=== PATIENT | male | born 1985 | race Caucasian/White ===

== ENCOUNTER 2017-11-06 10:32 | Emergency (ER) | payer BC, SELFPAY ==
[2017-11-06 10:33] VITALS: BP 198/94; PULSE 62; RESP 18; TEMP 36.6; O2SAT 98; BMI 38.0
--- NOTE | 2017-11-06 10:50 | EKG12_ITS ---
Test Reason : DIZZINESS Blood Pressure : / mmHG Vent. Rate : 062 BPM Atrial Rate : 062 BPM P-R Int : 130 ms QRS Dur : 110 ms QT Int : 384 ms P-R-T Axes : 024 -16 014 degrees QTc Int : 389 ms Normal sinus rhythm Poor R wave progression Confirmed by JULIET HEBERT, BRIAN ([id number]), electronic news gathering editor EVONNE MEDINA ([id number] on 11/09/2017 1:06:13 PM Referred By: BELTRAN Confirmed By:BRIAN CHUNG MD
[2017-11-06 10:54] VITALS: BP 142/70; BP 151/89; BP 154/92; PULSE 60; PULSE 62; PULSE 66
--- NOTE | 2017-11-06 10:59 | ED.DCSUM_ITS ---
- ER Visit Summary Date of Service: 11/06/17 Chief Complaint: Weak in the legs, flushed, nausea and lightheadedness. History of Present Illness: The patient is a 31 M's from work with the aforementioned chief complaint. He was standing 1-1/2 hours prior to the onset of his symptoms. He states this has happened 4 or 5 times in the past. He denies fever, chills or night sweats. Denies weight gain or weight loss. He denies any ocular, visual or auditory symptoms. He did complain of nausea without vomiting or diarrhea. He denies black or bloody stool. He denies any cardiac or respiratory symptoms. He denies any skin lesions. There is no history of trauma. He denies any leg pain, swelling or discoloration. There is no history of VTE or any risk factors. Physical Examination: There is markedly elevated 198/94. He reports that he has been told over the past 2-3 years as his blood pressure is elevated. He states no doctors treated it. Head is atraumatic normocephalic. Pupils are equal round reactive. Extraocular muscles are intact. TMs are pearly white with landmarks noted. Nares patent with no drainage. Posterior pharynx without erythema or exudate. Uvula is midline. There is no dysphonia or dysphasia. Trachea is midline. There is no stridor with auscultation of the neck. Heart is regular without murmur, gallop or rub. S1 and S2 are normal. Lungs are clear to auscultation with good movement of air bilaterally. Patient is alert and oriented ?3. Motor is 5 over 5. Sensory is intact. DTRs are symmetric with no clonus or Babinski sign. Cranial 2 through 12 are intact. Cerebellar testing is normal. There is no truncal ataxia was sitting up in bed and HINT test is negative. Test Results: EKG reveals a sinus rhythm rate of 62 and is normal. BMP and UA were negative Emergency Department Course and Treatment: EKG was obtained per nursing protocol. Since patient has markedly elevated blood pressure EKG is indicated to assess for LVH. Because he states he has been told over the past 2-3 years as blood pressure is elevated and is markedly elevated today will obtain a BMP and UA to assess for endorgan injury since he does not have a physician. Treatment Plan: Since patient does not have a primary care physician he was assigned to Dr. Kauffman. Dr. Ranjit Silveira who is water pollution control technician. He was given a prescription for lisinopril 10 mg tab 1 daily #30. Disposition: Discharge with outpatient follow-up in 1-2 weeks Impression: 1. Vasovagal near syncope 2. Hypertension newly diagnosed and treated This note was generated with [employer] dictation software. It may contain incorrect words, spelling, and punctuation that were not noted in review of the chart prior to signing ED Disposition - Plan for ED Patient: Disposition: Home or Assisted Living Chief Complaint: Dizziness Instructions: ED Near Syncope Vasovagal, ED Hypertension New Begin Tx Prescriptions: Lisinopril [Zestril] 10 mg PO DAILY #30 tab Referrals: Care Physician,No Primary [Primary Care Provider] - Ranjit Silveira MD [STAFF PHYSICIAN] - 1-2 Weeks
[2017-11-06 11:06] LABS: Bedside Glucose 107 mg/dL (70-110)
[2017-11-06 11:19] LABS: Bacteria 0 SEEN /hpf (None Seen); Mucous, Urine 0 SEEN /hpf (<or=2+); White Blood Cells 0 SEEN /hpf (0-5)
[2017-11-06 11:21] LABS: Glucose, Dipstick Normal (Normal); Ketone-Dipstick Negative (Negative); Leukocyte Esterase-Dipstick Negative /ul (Negative); Nitrite-Dipstick Negative (Negative); Occult Blood-Urine Negative /ul (Negative); Protein-Dipstick Negative (Negative); Specific Gravity, Urine 1.015 (1.002-1.030); Urine Bilirubin Dipstick Negative (Negative); Urine Urobilinogen Normal (Normal)
[2017-11-06 11:23] LABS: Color, Urine Yellow (Yellow); Urine Clarity Clear (Clear)
[2017-11-06 11:30] LABS: Red Blood Cells-Urine 0-5 SEEN /hpf (0-5); Squamous Epithelial Cells - UA 0-5 SEEN /hpf (0-5)
[2017-11-06 11:38] LABS: Anion Gap 7 (5-15); BUN 10 mg/dL (7-18); BUN/Creat Ratio 12.3 RATIO (10-20); Calcium,Total 9.1 mg/dL (8.5-10.1); Chloride 107 mmol/L (98-107); Creatinine, Serum 0.81 mg/dL (0.70-1.30); EST Glomerular Filtration Rate 117 mL/min (>60); Est Glom Filt Rate - Afr Amer 141 mL/min (>60); Estimated Creatinine Clearance 126.67 ml/min; Glucose 95 mg/dL (74-106); Potassium 3.8 mmol/L (3.5-5.1); Sodium Level 142 mmol/L (136-145)
== END 2017-11-06 11:57 | disposition home or self-care (01) ==
PROVIDERS: Emergency Provider Emergency Medicine
DX: R55 Syncope and collapse (principal); I10 Essential (primary) hypertension; E66.9 Obesity, unspecified; Z68.38 Body mass index [BMI] 38.0-38.9, adult; Z87.891 Personal history of nicotine dependence
CPT/HCPCS: 36415; 80048; 81001; 82962; 93005; 99283

== ENCOUNTER → 2017-11-20 08:41 | Outpatient (CLI) | payer BC, SELFPAY ==
[2017-11-20 10:59] LABS: Hemoglobin A1c 5.3 % (4.2-6.3)
[2017-11-20 11:02] LABS: Anion Gap 6 (5-15); BUN 15 mg/dL (7-18); BUN/Creat Ratio 18.7 RATIO (10-20); Calcium,Total 9.4 mg/dL (8.5-10.1); Chloride 105 mmol/L (98-107); EST Glomerular Filtration Rate 118 mL/min (>60); Est Glom Filt Rate - Afr Amer 142 mL/min (>60); Glucose 95 mg/dL (74-106); Potassium 4.1 mmol/L (3.5-5.1); Sodium Level 140 mmol/L (136-145); Thyroid Stim Hormone (TSH) 2.24 uIU/mL (0.358-3.74)
== END ==
PROVIDERS: Family Provider Family Medicine; PCP Family Medicine; Visit Provider Family Medicine
DX: I10 Essential (primary) hypertension (principal)
CPT/HCPCS: 36415; 80048; 83036; 84443

== ENCOUNTER → 2017-12-09 06:48 | Outpatient (CLI) | payer BC, SELFPAY ==
[2017-12-09 09:02] LABS: Glucose GTT- Fasting 100 mg/dL (74-106)
[2017-12-09 09:44] LABS: Glucose GTT-30 minutes 139 mg/dL (110-170)
[2017-12-09 10:42] LABS: Glucose GTT- 1 Hour 123 mg/dL (120-170)
[2017-12-09 10:50] LABS: Insulin 260.2 mU/L (2.6-37.6)
[2017-12-09 12:36] LABS: Glucose GTT- 2 Hour 92 mg/dL (70-120)
[2017-12-09 12:42] LABS: Glucose GTT- 3 Hour 56 mg/dL (74-106)
[2017-12-09 12:59] LABS: Glucose GTT- 4 Hour 79 mg/dL (74-106)
[2017-12-09 14:03] LABS: Glucose GTT- 5 Hour 84 mg/dL (74-106)
== END ==
PROVIDERS: Family Provider Family Medicine; PCP Family Medicine; Visit Provider Family Medicine
DX: R55 Syncope and collapse (principal)
CPT/HCPCS: 36415; 82951; 82952; 83525

== ENCOUNTER → 2018-04-05 06:43 | Outpatient (CLI) | payer BC, SELFPAY ==
[2018-04-05 07:15] LABS: Absolute Neutrophil Count 4.2 X10^3/uL (2.0-7.7); Basophil# 0.04 X10^3/uL; Basophil% 0.5 % (0-1); Eosinophil# 0.24 X10^3/uL; Eosinophils% 3.1 % (0-5); Hematocrit 42.4 % (40-54); Hemoglobin 14.5 g/dl (13.0-16.5); Mean Corp Hgb Conc 34.2 g/gl (32-36); Mean Corpuscular Hgb 29.6 pg (27.0-32.0); Mean Corpuscular Volume 86.5 fL (80-94); Mean Platelet Vol. 10.6 fl (6.2-12.0); Monocyte# 0.52 X10^3/uL; Monocyte% 6.8 % (0-10); Neutrophil # 4.18 X10^3/uL (2.7-7.7); Neutrophil % 54.8 % (47-70); Platelet Count 210 K/mm3 (150-450); RBC Distribution Width CV 12.4 % (11.6-14.6); RBC Distribution Width SD 38.8 fl (35.1-43.9); White Blood Count 7.6 K/mm3 (4.4-11.0)
[2018-04-05 07:29] LABS: POSITIVE COUNT NO; POSITIVE DIFFERENTIAL NO; POSITIVE MORPHOLOGY NO
[2018-04-05 07:57] LABS: AST(SGOT) 32 U/L (15-37); Alanine Aminotransfer ALT/SGPT 68 U/L (16-61); Albumin, Serum 3.7 g/dL (3.2-5.0); Alkaline Phosphatase 57 U/L (45-117); Anion Gap 6 (5-15); BUN 13 mg/dL (7-18); BUN/Creat Ratio 15.7 RATIO (10-20); Bilirubin, Direct 0.09 mg/dL (0.00-0.30); Calcium,Total 8.9 mg/dL (8.5-10.1); Chloride 105 mmol/L (98-107); Cholesterol 187 mg/dL (200); Creatinine, Serum 0.83 mg/dL (0.70-1.30); EST Glomerular Filtration Rate 114 mL/min (>60); Est Glom Filt Rate - Afr Amer 138 mL/min (>60); Globulin 3.6 g/dL (2.2-4.2); Glucose 90 mg/dL (74-106); High Density Lipoprotein 50 mg/dL; Potassium 4.1 mmol/L (3.5-5.1); Protein, Total 7.3 g/dL (6.4-8.2); Sodium Level 141 mmol/L (136-145); Thyroid Stim Hormone (TSH) 3.12 uIU/mL (0.358-3.74); Triglycerides 138 mg/dL; Very Low Density Lipoprotein 28 mg/dL (5-40)
== END ==
PROVIDERS: Family Provider Family Medicine; PCP Family Medicine; Visit Provider Internal Medicine Cardiovascular Disease
DX: I10 Essential (primary) hypertension (principal); R55 Syncope and collapse; E66.9 Obesity, unspecified
CPT/HCPCS: 36415; 80048; 80061; 80076; 84436; 84443; 85025

== ENCOUNTER → 2018-04-05 06:47 | Outpatient (REF) | payer BC, SELFPAY ==
--- NOTE | 2018-04-05 10:34 | ECHOD_ITS ---
Reason For Study: Syncope Procedure This was a 2D Doppler, Color Flow transthoracic echocardiogram. Exam performed in department. Left Ventricle Normal size and thickness. The estimated ejection fraction is 65 %. Normal diastology for age. No regional wall motion abnormalities noted. Right Ventricle Normal size and thickness. Normal systolic function. Atria Normal left atrium. Normal right atrium. Normal atrial septum. Mitral Valve The mitral valve is structurally normal. No prolapse or stenosis seen. Trivial mitral valve insufficiency. Tricuspid Valve Normal tricuspid valve. Trivial tricuspid valve insufficiency. Right ventricular systolic pressure estimated to be 26 mmHg. Aortic Valve Normal aortic valve. Trisinus/trileaflet aortic valve. Trivial aortic valve insufficiency. Pulmonic Valve Normal pulmonic valve. Great Vessels Normal aortic root. Normal arch. Normal inferior vena cava. Inferior vena cava collapse with sniff. Pericardium/Pleural No pericardial effusion. MMode/2D Measurements & Calculations LVIDd: 4.9 cm IVSd: 1.3 cm Ao root diam: 3.5 cm LVIDs: 3.1 cm LVPWd: 1.0 cm LA dimension: 4.2 cm RVDd: 4.0 cm FS: 36.5 % LAV(MOD-bp): 48.3 ml LA A4 area: 15.7 cm2 RA A4 area: 16.4 cm2 LAV(MOD-bp) Indexed: 21.1 ml/m2 LAV(MOD-sp2): 57.0 ml LAV(MOD-sp4): 40.2 ml Time Measurements MV dec time: 0.24 sec Doppler Measurements & Calculations MV E max piotr: 110.6 cm/sec Lat Peak E' Piotr: 16.3 cm/sec Med Peak E' Piotr: 14.4 cm/sec MV A max piotr: 61.5 cm/sec E/E' lat: 6.8 E/E' med: 7.7 MV E/A: 1.8 MV V2 max: 119.7 cm/sec MV P1/2t max piotr: 120.8 cm/sec Ao V2 max: 141.2 cm/sec MV max P.7 mmHg MV P1/2t: 116.5 msec Ao max P.0 mmHg MV V2 mean: 58.0 cm/sec MV dec slope: 303.8 cm/sec2 Ao V2 mean: 90.1 cm/sec MV mean P.7 mmHg MVA(P1/2t): 1.9 cm2 Ao mean P.8 mmHg MV V2 VTI: 32.4 cm Ao V2 VTI: 26.9 cm LV V1 max: 121.3 cm/sec PA V2 max: 124.2 cm/sec TR max piotr: 230.8 cm/sec LV V1 max P.9 mmHg TR max P.3 mmHg LV V1 mean P.8 mmHg LV V1 mean: 78.2 cm/sec LV V1 VTI: 25.8 cm Interpretation Summary The estimated ejection fraction is 65 %. Normal diastology for age. Trivial mitral valve insufficiency. Trivial tricuspid valve insufficiency. Right ventricular systolic pressure estimated to be 26 mmHg. Trivial aortic valve insufficiency. There is no comparison study available. Ordering Physician: Lacho Christiansen Referring Physician: Lacho Christiansen Performed By: Denys Snell [facility]
== END ==
LOC: CVS 06:47
PROVIDERS: Family Provider Family Medicine; PCP Family Medicine; Visit Provider Internal Medicine Cardiovascular Disease
DX: R55 Syncope and collapse (principal); I10 Essential (primary) hypertension
CPT/HCPCS: 93270; 93306

== ENCOUNTER → 2018-04-15 10:18 | Outpatient (CLI) | payer BC, SELFPAY ==
--- NOTE | 2018-04-15 10:20 | STE_ITS ---
Reason For Study: Syncope Stress Results Protocol: Robert Protocol Maximum Predicted HR: 187 bpm Target HR: 159 bpm% Max imum Predicted HR: 94 % DurationHeart Rate Stage (mm:ss) (bpm) BPCom ment Baseline 46 118/72 No Chest Pain Robert Protocol Stage I 3:00 13 6 148/70No Chest Pain; Mild Dyspnea Robert Protocol Stage II 3:00 15 0 138/72No Chest Pain; Mild Dyspnea Robert Protocol Stage III 1:00 17 6 / No Chest Pain; Moderate Dyspnea; Leg Pain Recovery 99 128/72 No Chest Pain Stress Duration: 7:00 mm:ss Maximum Stress HR: 176 bpmM ETS: 10 Baseline Echocardiogram Findings The estimated ejection fraction is 65 %. Normal size and thickness. Stress Echo Wall motion Data Resting WMIntermediate WMStress WM Resting Wall Motion Wall Motion Stress No regional wall motion No regional wall motion abnormalities noted. abnormalities noted. EKG Data Normal intervals are noted. The patient exercised according to the regular Robert protocol for a total duration of 7:00. The maximum heart rate attained was 181 beats per minute. This was 96% of maximum predicted heart rate. The patient exercised into stage 3 of the Robert protocol. During stress, there were no ST or T wave changes noted to suggest ischemia. No clinical angina was noted. No arrhythmias noted. Interpretation Summary The estimated ejection fraction is 65 %. Normal, adequate, treadmill echocardiogram. Negative for ischemia by EKG and echocardiographic criteria. No anginal symptoms noted. No arrhythmias noted. Appropriate blood pressure response to exercise. Below average exercise capacity for age. Final LVEF is 75%. Test terminated due to dyspnea and leg pain. No complications. Ordering Physician: Lacho Christiansen Referring Physician: Lacho Christiansen Performed By: Noa Landers RDCS
== END ==
PROVIDERS: Family Provider Family Medicine; PCP Family Medicine; Visit Provider Internal Medicine Cardiovascular Disease
DX: R55 Syncope and collapse (principal); I10 Essential (primary) hypertension; E66.9 Obesity, unspecified
CPT/HCPCS: 93017; 93350

== ENCOUNTER → 2018-07-02 20:00 | Outpatient (CLI) | payer BC, SELFPAY | PROVIDERS: Family Provider Family Medicine; PCP Family Medicine; Visit Provider Internal Medicine Cardiovascular Disease | DX: G47.10 Hypersomnia, unspecified (principal); R55 Syncope and collapse; E66.9 Obesity, unspecified | CPT/HCPCS: 95810 ==

== ENCOUNTER → 2018-11-10 11:23 | Outpatient (CLI) | payer BC, SELFPAY ==
[2018-11-10 07:11] VITALS: BMI 39.5
[2018-11-10 14:37] LABS: Anion Gap 12 (5-15); BUN 15 mg/dL (7-18); BUN/Creat Ratio 20.2 RATIO (10-20); Calcium,Total 9.1 mg/dL (8.5-10.1); Chloride 104 mmol/L (98-107); Creatinine, Serum 0.74 mg/dL (0.70-1.30); EST Glomerular Filtration Rate 128 mL/min (>60); Est Glom Filt Rate - Afr Amer 155 mL/min (>60); Glucose 65 mg/dL (74-106); Sodium Level 142 mmol/L (136-145)
[2018-11-10 14:43] LABS: Microalbumin,Random Urine < 5.0 mg/L (NO RANGE EST.)
== END ==
PROVIDERS: Family Provider Family Medicine; PCP Family Medicine; Visit Provider Family Medicine
DX: I10 Essential (primary) hypertension (principal)
CPT/HCPCS: 36415; 80048; 82043; 82570

== ENCOUNTER → 2019-08-12 | Outpatient (CLI) | payer BC, SELFPAY ==
[2018-11-10 07:11] VITALS: BMI 39.5
[2019-08-12 10:26] LABS: ALB/GLOB Ratio 1.2 RATIO (0.9-2.4); AST(SGOT) 42 U/L (15-37); Alanine Aminotransfer ALT/SGPT 87 U/L (16-61); Alkaline Phosphatase 67 U/L (45-117); Anion Gap 8 (5-15); BUN 16 mg/dL (7-18); Calcium,Total 9.2 mg/dL (8.5-10.1); Chloride 106 mmol/L (98-107); EST Glomerular Filtration Rate 117 mL/min (>60); Est Glom Filt Rate - Afr Amer 141 mL/min (>60); Globulin 3.3 g/dL (2.2-4.2); Glucose 98 mg/dL (74-106); Potassium 4.5 mmol/L (3.5-5.1); Protein, Total 7.3 g/dL (6.4-8.2); Sodium Level 141 mmol/L (136-145)
[2019-08-12 10:31] LABS: Hemoglobin A1c 5.4 % (4.2-6.3)
[2019-08-12 10:37] LABS: Microalbumin,Random Urine 30.9 mg/L (NO RANGE EST.); Microalbumin:Creatinine Ratio 21.2 mg/g CRE (<30 mg/g CRE)
== END | disposition home or self-care (01) ==
LOC: MFPLAB 08:47
PROVIDERS: Family Provider Family Medicine; PCP Family Medicine; Referring Provider Family Medicine; Visit Provider Family Medicine
DX: I10 Essential (primary) hypertension (principal); E88.81 Metabolic syndrome and other insulin resistance
CPT/HCPCS: 36415; 80053; 82043; 82570; 83036

== ENCOUNTER → 2019-11-07 | Outpatient (CLI) | payer BC, SELFPAY ==
[2018-11-10 07:11] VITALS: BMI 39.5
[2019-11-07 18:11] LABS: Absolute Lymphocyte Count 3.47 X10^3/uL (0.83-4.51); Absolute Neutrophil Count 5.3 X10^3/uL (2.0-7.7); Basophil# 0.06 X10^3/uL; Basophil% 0.6 % (0-1); Eosinophil# 0.16 X10^3/uL; Eosinophils% 1.7 % (0-5); Hematocrit 45.8 % (40-54); Hemoglobin 15.2 g/dL (13.0-16.5); Lymphocyte # 3.47 X10^3/ul (4.0); Lymphocyte % 35.8 % (19-41); Mean Corp Hgb Conc 33.2 g/dL (32-36); Mean Corpuscular Hgb 28.6 pg (27.0-32.0); Mean Corpuscular Volume 86.1 fL (80-94); Mean Platelet Vol. 10.7 fl (6.2-12.0); Monocyte# 0.61 X10^3/uL; Monocyte% 6.3 % (0-10); NRBC Flagged by Analyzer 0 % (0-5); Neutrophil # 5.34 X10^3/uL (2.7-7.7); Neutrophil % 55.2 % (47-70); Platelet Count 231 K/mm3 (150-450); RBC Distribution Width CV 12.2 % (11.6-14.6); RBC Distribution Width SD 38.3 fl (35.1-43.9); Red Blood Count 5.32 M/mm3 (4.6-6.2); White Blood Count 9.7 K/mm3 (4.4-11.0)
[2019-11-07 18:44] LABS: ALB/GLOB Ratio 1.2 RATIO (0.9-2.4); AST(SGOT) 35 U/L (15-37); Alanine Aminotransfer ALT/SGPT 79 U/L (16-61); Albumin, Serum 4.2 g/dL (3.2-5.0); Alkaline Phosphatase 75 U/L (45-117); Anion Gap 3 (5-15); BUN 13 mg/dL (7-18); BUN/Creat Ratio 14.3 RATIO (10-20); Calcium,Total 9.6 mg/dL (8.5-10.1); Chloride 107 mmol/L (98-107); Creatinine, Serum 0.91 mg/dL (0.70-1.30); EST Glomerular Filtration Rate 101 mL/min (>60); Est Glom Filt Rate - Afr Amer 122 mL/min (>60); Ferritin 160 ng/mL (26-388); GGTP 30 U/L (15-85); Globulin 3.6 g/dL (2.2-4.2); Glucose 76 mg/dL (74-106); Iron Binding Capacity,Total 351 ug/dL (250-450); Potassium 3.7 mmol/L (3.5-5.1); Protein, Total 7.8 g/dL (6.4-8.2); Sodium Level 140 mmol/L (136-145)
== END | disposition home or self-care (01) ==
LOC: MFPLAB 16:42
PROVIDERS: PCP Family Medicine; Referring Provider Family Medicine; Visit Provider Family Medicine
DX: R74.0 Nonspecific elevation of levels of transaminase and lactic acid dehydrogenase [LDH] (principal)
CPT/HCPCS: 36415; 80053; 82728; 82977; 83550; 85025

== ENCOUNTER → 2020-12-28 10:46 | Outpatient (CLI) | payer BC, SELFPAY ==
[2018-11-10 07:11] VITALS: BMI 39.5
[2020-12-28 12:23] LABS: Absolute Neutrophil Count 3.6 X10^3/uL (2.0-7.7); Basophil# 0.06 X10^3/uL; Basophil% 0.9 % (0-1); Eosinophil# 0.11 X10^3/uL; Eosinophils% 1.7 % (0-5); Hematocrit 48.6 % (40-54); Hemoglobin 15.9 g/dL (13.0-16.5); Lymphocyte % 33.1 % (19-41); Mean Corp Hgb Conc 32.7 g/dL (32-36); Mean Corpuscular Hgb 28.6 pg (27.0-32.0); Mean Corpuscular Volume 87.4 fL (80-94); Mean Platelet Vol. 10.8 fl (6.2-12.0); Monocyte% 7.9 % (0-10); NRBC Flagged by Analyzer 0 % (0-5); Neutrophil # 3.55 X10^3/uL (2.7-7.7); Neutrophil % 55.9 % (47-70); Platelet Count 249 K/mm3 (150-450); RBC Distribution Width CV 12.4 % (11.6-14.6); RBC Distribution Width SD 39.8 fl (35.1-43.9); Red Blood Count 5.56 M/mm3 (4.6-6.2); White Blood Count 6.4 K/mm3 (4.4-11.0)
[2020-12-28 13:12] LABS: ALB/GLOB Ratio 1.2 RATIO (0.9-2.4); AST(SGOT) 41 U/L (15-37); Alanine Aminotransfer ALT/SGPT 100 U/L (16-61); Albumin, Serum 4.1 g/dL (3.2-5.0); Alkaline Phosphatase 72 U/L (45-117); Anion Gap 6 (5-15); BUN 13 mg/dL (7-18); BUN/Creat Ratio 18.3 RATIO (10-20); Calcium,Total 9.5 mg/dL (8.5-10.1); Chloride 106 mmol/L (98-107); Creatinine, Serum 0.71 mg/dL (0.70-1.30); EST Glomerular Filtration Rate 133 mL/min (>60); Est Glom Filt Rate - Afr Amer 161 mL/min (>60); Globulin 3.5 g/dL (2.2-4.2); Glucose 91 mg/dL (74-106); Potassium 4.2 mmol/L (3.5-5.1); Protein, Total 7.6 g/dL (6.4-8.2); Sodium Level 138 mmol/L (136-145); Thyroid Stim Hormone (TSH) 1.83 uIU/mL (0.358-3.74)
== END ==
PROVIDERS: PCP Family Medicine; Referring Provider Family Medicine; Visit Provider Family Medicine
DX: E88.81 Metabolic syndrome and other insulin resistance (principal); R74.01 Elevation of levels of liver transaminase levels
CPT/HCPCS: 36415; 80053; 84443; 85025

== ENCOUNTER → 2021-03-29 08:25 | Outpatient (CLI) | payer BC, SELFPAY ==
[2018-11-10 07:11] VITALS: BMI 39.5
[2021-03-29 09:56] LABS: Absolute Lymphocyte Count 2.29 X10^3/uL (0.83-4.51); Absolute Neutrophil Count 5.9 X10^3/uL (2.0-7.7); Basophil# 0.05 X10^3/uL; Basophil% 0.5 % (0-1); Eosinophils% 2.2 % (0-5); Hematocrit 45.4 % (40-54); Hemoglobin 15.2 g/dL (13.0-16.5); Lymphocyte # 2.29 X10^3/ul (0.83-4.51); Lymphocyte % 25.1 % (19-41); Mean Corp Hgb Conc 33.5 g/dL (32-36); Mean Corpuscular Hgb 28.9 pg (27.0-32.0); Mean Corpuscular Volume 86.3 fL (80-94); Mean Platelet Vol. 10.5 fl (6.2-12.0); Monocyte# 0.64 X10^3/uL; NRBC Flagged by Analyzer 0 % (0-5); Neutrophil # 5.92 X10^3/uL (2.7-7.7); Neutrophil % 64.9 % (47-70); Platelet Count 219 K/mm3 (150-450); RBC Distribution Width CV 12.4 % (11.6-14.6); RBC Distribution Width SD 38.9 fl (35.1-43.9); Red Blood Count 5.26 M/mm3 (4.6-6.2); White Blood Count 9.1 K/mm3 (4.4-11.0)
[2021-03-29 10:27] LABS: ALB/GLOB Ratio 1.2 RATIO (0.9-2.4); AST(SGOT) 41 U/L (15-37); Alanine Aminotransfer ALT/SGPT 88 U/L (16-61); Alkaline Phosphatase 71 U/L (45-117); Anion Gap 6 (5-15); BUN 14 mg/dL (7-18); BUN/Creat Ratio 15.9 RATIO (10-20); Calcium,Total 9.4 mg/dL (8.5-10.1); Chloride 107 mmol/L (98-107); Creatinine, Serum 0.88 mg/dL (0.70-1.30); EST Glomerular Filtration Rate 104 mL/min (>60); Est Glom Filt Rate - Afr Amer 126 mL/min (>60); Globulin 3.3 g/dL (2.2-4.2); Glucose 105 mg/dL (74-106); Potassium 4.3 mmol/L (3.5-5.1); Protein, Total 7.3 g/dL (6.4-8.2); Sodium Level 141 mmol/L (136-145)
[2021-03-29 10:36] LABS: Hemoglobin A1c 5.2 % (3.8-5.6)
== END ==
PROVIDERS: PCP Family Medicine; Visit Provider Family Medicine
DX: E88.81 Metabolic syndrome and other insulin resistance (principal); R74.01 Elevation of levels of liver transaminase levels
CPT/HCPCS: 36415; 80053; 83036; 85025